=== PATIENT | male | born 1965 | race Caucasian/White ===

== ENCOUNTER 2024-03-29 15:32 | Emergency (ER) | payer OTHER | END 2024-03-29 18:10 | disposition home or self-care (01) | LOC: JD.ED 15:32 | DX: S13.9XXA Sprain of joints and ligaments of unspecified parts of neck, initial encounter (principal); S00.03XA Contusion of scalp, initial encounter; Z88.2 Allergy status to sulfonamides; Z88.5 Allergy status to narcotic agent; Z88.8 Allergy status to other drugs, medicaments and biological substances; W18.30XA Fall on same level, unspecified, initial encounter | CPT/HCPCS: 70450; 70450-26; 72125; 72125-26; 99283 ==